=== PATIENT | female | born 1985 | race Caucasian/White ===

== ENCOUNTER 2020-01-14 09:32 | Inpatient (IN) | payer BC ==
[2020-01-19] MEDS ORDERED: CARBOPROST TROMETHAMINE 250 MCG/ML 1 ML AMP IM PRN (17:00)
[2020-01-19] MEDS ORDERED: OXYTOCIN 30 UNITS/500 ML NS 30 UNIT in SALINE 1 500ML.BAG IV SCH (17:00)
[2020-01-19] MEDS ORDERED: TERBUTALINE 1 MG/ML VIAL SQ PRN (17:00)
[2020-01-19] MEDS ORDERED: METHYLERGONOVINE 0.2 MG/ML 1 ML AMP IM PRN (17:00)
[2020-01-19] MEDS ORDERED: OXYTOCIN 10 UNIT/ML 1 ML VIAL IM PRN (17:00)
[2020-01-19] MEDS ORDERED: LIDOCAINE 0.5% (PF) 5 MG/ML (50 ML SDV) SQ PRN (17:00)
[2020-01-19] MEDS ORDERED: DINOPROSTONE 10 MG INSERT.ER VAGINAL ONE (17:02)
--- NOTE | 2020-01-19 17:05 | P.HPOB ---
History of Present Illness H&P Date: 01/19/20 Chief Complaint: IUP at 40 and 5/sevenths weeks, postdates This is a 34-year-old at 40-5/7 weeks that presents to labor and delivery for induction of labor secondary to postdates. Patient had an JOSE done in the office today with a level of 8 slightly low. Patient is noted good movement, she had a reactive NST in the office today. Patient is patient had an ultrasound last week revealing a estimated weight of 9 lbs. 1 oz., JOSE of 10. Patient has noted good movement since this visit. Patient denies contractions. Review of Systems Constitutional: Denies fatigue, Denies fever Ears, nose, mouth and throat: Denies headache Cardiovascular: Reports leg edema Gastrointestinal: Denies constipation, Denies diarrhea, Denies nausea, Denies vomiting Genitourinary: Reports Exam Osteopathic Statement: *. No significant issues noted on an osteopathic structural exam other than those noted in the History and Physical/Consult. Targeted physical exam is deferred in this date and family worker a well-nourished well-developed female in obvious distress, breathing is noted to be nonlabored, heart has regular rate and rhythm, abdomen is gravid and appropriate for gestational age, heart tones returned be category 1, on cervical exam she is 1/70/-2 station. Assessment and Plan (1) Post-dates Current Visit: Yes Status: Acute Code(s): O48.0 - POST-TERM SNOMED Code(s): 36515906 Plan: Patient is admitted to labor and delivery for Cervidil induction of labor secondary to postdates. Patient is counseled on Cervidil induction of labor and all questions are answered. Patient is counseled on options for analgesia including Stadol and epidural patient will consider both.
[2020-01-19 18:42] LABS: Basophils # (A) 0.1 k/uL (0-0.2); Basophils % (A) 1 %; Eosinophils # (A) 0.3 k/uL (0-0.7); Eosinophils % (A) 3 %; HCT 39.9 % (34.0-46.0); HGB 14.2 gm/dL (11.4-16.0); Lymphocytes # (A) 2.5 k/uL (1.0-4.8); Lymphocytes % (A) 24 %; MCH 33.7 pg (25.0-35.0); MCHC 35.6 g/dL (31.0-37.0); MCV 94.6 fL (80.0-100.0); Mean Platelet Volume 9.6; Monocytes # (A) 0.6 k/uL (0-1.0); Monocytes % (A) 6 %; Neutrophils # (A) 6.9 k/uL (1.3-7.7); Neutrophils % (A) 65 %; Platelet Count 210 k/uL (150-450); RBC 4.21 m/uL (3.80-5.40); RDW 12.6 % (11.5-15.5); WBC 10.6 k/uL (3.8-10.6)
[2020-01-19] MEDS ORDERED: BUTORPHANOL 1 MG/ML 1 ML VIAL IV PRN (22:05)
[2020-01-19] MEDS: LACTATED RINGERS 1,000 ML IV SCH (22:13)
[2020-01-20] MEDS: LACTATED RINGERS 1,000 ML IV SCH ×4 (00:21→11:28)
[2020-01-20] MEDS ORDERED: SODIUM CHLORIDE 0.9% 100 ML BAG ONE (00:34)
[2020-01-20] MEDS ORDERED: fentaNYL (PF) 50 MCG/ML 5 ML AMP ONE (00:34)
[2020-01-20] MEDS ORDERED: ROPIVACAINE 5MG/ML 20ML VIAL ONE (00:34)
[2020-01-20] MEDS ORDERED: CITRIC ACID-SODIUM CITRATE 15 ML CUP PO ONE (02:16)
[2020-01-20] MEDS ORDERED: ceFAZolin 1,000 MG VIAL ONE (02:35)
[2020-01-20] MEDS ORDERED: OXYTOCIN 10 UNIT/ML 1 ML VIAL ONE (02:35)
[2020-01-20] MEDS ORDERED: MORPHINE SULFATE (PF) 0.3 MG/0.3 ML SYR ONE (02:35)
[2020-01-20] MEDS ORDERED: ONDANSETRON 4 MG/2 ML VIAL ONE (02:35)
[2020-01-20] MEDS ORDERED: diphenhydrAMINE 50 MG/ML 1 ML VIAL IVP PRN ×2 (03:13)
[2020-01-20] MEDS ORDERED: IBUPROFEN 600 MG TAB PO PRN (03:13)
[2020-01-20] MEDS ORDERED: ACETAMINOPHEN TAB 325 MG TAB PO PRN (03:13)
[2020-01-20] MEDS ORDERED: HYDROcodone/APAP 5-325MG 1 EACH TAB PO PRN (03:13)
[2020-01-20] MEDS ORDERED: diphenhydrAMINE 25 MG CAP PO PRN (03:13)
[2020-01-20] MEDS ORDERED: ACETAMINOPHEN IV (For NPO) 1,000 MG in EMPTY BAG 1 BAG IVPB ONE (03:13)
[2020-01-20] MEDS ORDERED: diphenhydrAMINE 50 MG CAP PO PRN (03:13)
[2020-01-20] MEDS ORDERED: METOCLOPRAMIDE 5 MG/ML 2 ML VIAL IVP PRN (03:13)
[2020-01-20] MEDS ORDERED: ZOLPIDEM 5 MG TAB PO PRN (03:13)
[2020-01-20] MEDS ORDERED: NALOXONE 0.4 MG/ML 1 ML VIAL IV PRN (03:13)
[2020-01-20] MEDS ORDERED: ONDANSETRON 4 MG/2 ML VIAL IVP PRN (03:13)
[2020-01-20] MEDS ORDERED: IBUPROFEN IV 800 MG in SODIUM CHLORIDE 0.9% 250 ML IV ONE (03:14)
[2020-01-20] MEDS ORDERED: OXYTOCIN 20 UNITS/1000 ML NS 1,000 ML IV SCH (03:15)
--- NOTE | 2020-01-20 03:17 | P.OP ---
Date of Procedure: 01/20/20 Preoperative Diagnosis: IUP at 40 and 6/sevenths weeks, meconium-stained fluid, nonreassuring heart tones Postoperative Diagnosis: Same Procedure(s) Performed: Primary low transverse section Anesthesia: epidural Surgeon: Aminah Cadena Auto Mechanics Instructor #1: Brigitte Gilliland Estimated Blood Loss (ml): 600 IV fluids (ml): 1,000 Urine output (ml): 100 Pathology: other (Placenta) Condition: stable Disposition: observation Indications for Procedure: This 34-year-old at 40-6/7 weeks presents to labor and delivery for Cervidil induction of labor. Cervidil was placed patient progressed quickly jyothi t into active labor. Patient was uncomfortable and did request epidural placement. Patient was known to be 4-5 cm just prior to the epidural. Patient was noted to have some decelerations after the epidural that resolved. Patient was then noted to have consistent decelerations to the 90s for 2 minutes and minimal variability. Patient was counseled on intolerance to labor and need for primary . Patient stated understanding and was taken back to the operating suite. Operative Findings: Normal uterus tubes and ovaries were appreciated, viable female infant delivered at 247, weight of 7 lbs. 10 oz. and Apgars of 8 and 9 at one and 5 minutes respectively. Description of Procedure: The patient was prepped and draped in the usual fashion after epidural anesthesia was found be adequate. A Pfannenstiel incision was made and extended of the abdominal cavity without difficulty. The bladder peritoneum was elevated and incised and reflected distally. A 2 cm incision was made in the transverse plane of the lower uterine segment to enter the uterus at which time clear fluid was noted. The incision was extended in both directions manually. The head was encountered within the field and delivered up and through the incision where the nose and mouth were thoroughly suctioned. Remainder of the infant was delivered onto the surgical field where the cord was doubly clamped, cut, and the infant was passed for resuscitative measures with weight and Apgars as noted above. A segment of cord was then doubly clamped, cut, and set aside should cord gases become necessary. The placenta was delivered manually, intact, and was grossly normal with a grossly normal three-vessel cord. The uterus was exteriorized and the interior cavity of the uterus swept of any remaining placental and membranous fragments with a laparotomy sponge. The margins of the incision were grasped with Allis clamps and the incision closed in 2 layers. First layer was a running locking layer of 0 Vicryl from margin to margin followed by a second layer of imbricating 0 Vicryl from margin to margin. Any small points of bleeding were then made hemostatic with the Bovie. Once hemostasis was achieved, the posterior cul-de-sac was suctioned with a guard and the uterine and ovarian findings are as noted above. The uterus was replaced within the abdominal cavity and the gutters swept of any remaining blood fluid or clot. The incision was again reexamined and hemostasis was noted to be excellent. Any small point of bleeding were made hemostatic with the Bovie. Once hemostasis was achieved the parietal peritoneum was loosely reapproximated. The layer of muscles were examined and made hemostatic with the Bovie. A ttention was then turned to the fascia which was closed with 2 running stitches of 0 Vicryl proceeding from the lateral margins to the midpoint. The subcutaneous tissues were irrigated, made hemostatic with the Bovie, and reapproximated with a running stitch of 30 plain catgut. The skin was reapproximated with 4-0 Vicryl. Estimated blood loss for the case was approximately 600 mL. All sponge instrument and needle counts are correct. There were no complications. The patient tolerated the procedure well and proceeded to the recovery room in stable condition. Both mother and are resting comfortably in recovery.
[2020-01-20] MEDS: SENNOSIDES-DOCUSATE SODIUM 1 EACH TAB PO SCH ×2 (09:53→21:25)
--- NOTE | 2020-01-20 12:52 | P.PNOBGPC ---
Subjective - Subjective Principal diagnosis: POD 0 LTCS, mec stained fluid, NRFHTs. Interval history: Patient did well this morning, she is ambulating with some dizziness, she is tolerating clear liquids. She states her pain is well-controlled. We are awaiting a spontaneous void as Alcaraz was just discontinued. Lochia is noted to be moderate. Patient reports: Reports pain well controlled, Reports ambulating normally, Reports nauseated : doing well Objective - Vital Signs Latest vital signs: Vital Signs Temp Pulse Resp BP Pulse Ox 01/20/20 11:59 98.7 F 47 L 16 132/68 01/20/20 08:00 98.4 F 63 16 137/78 97 01/20/20 05:20 99.6 F 76 16 127/80 01/20/20 04:50 75 16 160/75 01/20/20 04:20 72 16 136/87 01/20/20 04:05 72 16 136/66 01/20/20 03:50 72 16 140/65 01/20/20 03:35 75 16 148/71 01/20/20 03:20 97.7 F 74 16 129/69 01/19/20 17:14 97.9 F 78 18 137/93 100 Intake and Output 01/19/20 01/20/20 01/20/20 22:59 06:59 14:59 Intake Total 50 Output Total 375 1300 Balance -375 -1250 Intake: Oral 50 Output: Urine 375 1300 Uretheral ([place]caraz) 1300 Other: # Voids 1 # Bowel Movements 1 Weight 68.492 kg - Exam Extremities: Present: normal, edema Abdomen: Present: normal appearance, soft Incision: Present: normal, dry, intact Uterus: Present: firm Assessment and Plan (1) Post-dates Current Visit: Yes Status: Acute Code(s): O48.0 - POST-TERM SNOMED Code(s): 97787333 (2) Thin meconium stained amniotic fluid Current Visit: Yes Status: Acute Code(s): P96.83 - MECONIUM STAINING SNOMED Code(s): 760179723 (3) Non-reassuring heart rate with late deceleration Current Visit: Yes Status: Acute Code(s): O36.8390 - MATERN CARE FOR ABNLT FETL HRT RATE OR RHYM, UNSP TRI, UNSP SNOMED Code(s): 388280540 (4) S/P section Current Visit: Yes Status: Acute Code(s): Z98.891 - HISTORY OF UTERINE SCAR FROM PREVIOUS SURGERY SNOMED Code(s): 307675479 Plan: This 34-year-old 1 now para 1 status post primary for nonreassuring heart tones, thin meconium-stained fluid is doing well. Alcaraz was discontinued we are awaiting spontaneous void. Encouraging increased ambulation and we will advance diet as tolerated.
[2020-01-20] MEDS: IBUPROFEN ORAL SUSP 100 MG/5 ML CUP PO PRN (21:59)
[2020-01-20] MEDS: SENNA LEAF EXTRACT SYRUP 528 MG/15 ML CUP PO SCH (22:03)
[2020-01-21] MEDS: IBUPROFEN ORAL SUSP 100 MG/5 ML CUP PO PRN ×3 (05:45→18:35)
--- NOTE | 2020-01-21 07:09 | P.PN ---
Progress Note - Text Date: 01/21/2020 Time: 06:53 The patient is status post section Vital signs stable VAS: 0-10 Patient has no complaints of pain. The patient incurred some minimal itching and nausea yesterday, the itching and nausea have now subsided. Pain meds to be managed by service.
[2020-01-21 08:42] LABS: Basophils % (A) 0 %; Eosinophils # (A) 0.2 k/uL (0-0.7); Eosinophils % (A) 2 %; HCT 35.4 % (34.0-46.0); HGB 12.2 gm/dL (11.4-16.0); Lymphocytes # (A) 1.7 k/uL (1.0-4.8); Lymphocytes % (A) 16 %; MCH 33.5 pg (25.0-35.0); MCHC 34.4 g/dL (31.0-37.0); MCV 97.4 fL (80.0-100.0); Mean Platelet Volume 9.2; Monocytes # (A) 0.6 k/uL (0-1.0); Monocytes % (A) 6 %; Neutrophils # (A) 7.8 k/uL (1.3-7.7); Neutrophils % (A) 74 %; Platelet Count 155 k/uL (150-450); RBC 3.64 m/uL (3.80-5.40); RDW 12.9 % (11.5-15.5); WBC 10.5 k/uL (3.8-10.6)
--- NOTE | 2020-01-21 08:43 | P.PNOBGPC ---
Subjective - Subjective Principal diagnosis: POD 1 LTCS NRFHTs Interval history: patient overall did well overnight. Patient is noting increased pain for which she is taking liquid [place], liquid Motrin. Patient is ambulating and voiding without difficulty. She is tolerating a regular diet without nausea or vomiting. She states she is painful but hasn't taken her pain medication. Her lochia is minimal. she is attempting to breast-feed. Patient reports: Reports appetite normal, Reports voiding normally, Reports ambulating normally, Reports nauseated [place]: doing well Objective - Vital Signs Latest vital signs: Vital Signs Temp Pulse Resp BP Pulse Ox 01/21/20 00:00 97.6 F 63 16 131/70 96 01/20/20 20:00 97.2 F L 63 16 137/86 98 01/20/20 16:00 98.1 F 46 L 16 122/70 01/20/20 11:59 98.7 F 47 L 16 132/68 Intake and Output 01/20/20 01/21/20 01/21/20 22:59 06:59 14:59 Output Total 2150 400 Balance -2150 -400 Output: Urine 2150 400 Uretheral (Alcaraz) 900 Other: Voiding Method Toilet - Exam Extremities: Present: normal, edema Abdomen: Present: normal appearance Incision: Present: normal Uterus: Present: normal, firm Assessment and Plan (1) Post-dates Current Visit: Yes Status: Acute Code(s): O48.0 - POST-TERM SNOMED Code(s): 20927900 (2) Thin meconium stained amniotic fluid Current Visit: Yes Status: Acute Code(s): P96.83 - MECONIUM STAINING SNOMED Code(s): 959517384 (3) Non-reassuring heart rate with late deceleration Current Visit: Yes Status: Acute Code(s): O36.8390 - MATERN CARE FOR ABNLT FETL HRT RATE OR RHYM, UNSP TRI, UNSP SNOMED Code(s): 100682910 (4) S/P section Current Visit: Yes Status: Acute Code(s): Z98.891 - HISTORY OF UTERINE SCAR FROM PREVIOUS SURGERY SNOMED Code(s): 639991064 Plan: we'll plan to continue routine postoperative care and encouraged her to take her pain medication. Increased ambulation and anticipate discharge home tomorrow.
[2020-01-21] MEDS: SENNA LEAF EXTRACT SYRUP 528 MG/15 ML CUP PO SCH ×2 (08:48→20:02)
[2020-01-21] MEDS: HYDROcodone/APAP 15 ML SOLUTION PO PRN ×3 (08:49→22:48)
[2020-01-21] MEDS: SIMETHICONE 80 MG CHEWABLE PO PRN ×2 (15:36→20:07)
[2020-01-21 23:39] VITALS: PULSE 69; RESP 16
[2020-01-22] MEDS: IBUPROFEN ORAL SUSP 100 MG/5 ML CUP PO PRN (05:33)
[2020-01-22 07:59] VITALS: BP 138/71; TEMP 98.7
[2020-01-22] MEDS: SIMETHICONE 80 MG CHEWABLE PO PRN (08:05)
[2020-01-22] MEDS: HYDROcodone/APAP 15 ML SOLUTION PO PRN (08:06)
--- NOTE | 2020-01-22 08:44 | P.DS ---
Providers Date of admission: 01/19/20 16:36 Expected date of discharge: 01/22/20 Attending physician: Aminah Cadena Primary care physician: Stated None - Discharge Diagnosis(es) (1) Post-dates Current Visit: Yes Status: Acute (2) Thin meconium stained amniotic fluid Current Visit: Yes Status: Acute (3) Non-reassuring heart rate with late deceleration Current Visit: Yes Status: Acute (4) S/P section Current Visit: Yes Status: Acute Hospital Course: This is a 34-year-old 1 para 0 that presented to labor and delivery for Cervidil induction of labor secondary to postdates at 40-6/7 weeks. Patient was noted to be 1/70/-2 station. Patient quickly progressed into labor after a few hours was noted to be 2 cm. Patient was significantly uncomfortable and did receive Stadol 1. Patient was noted to be 4-5 cm requesting epidural. Epidural was placed without difficulty by the anesthesia department. After epidural was placed some decelerations were noted. Approximately 2 hours later decelerations continued down to the 90s for 2 minutes with return to baseline and minimal variability. Patient was counseled on primary secondary to nonreassuring heart tones. Patient agreed and was taken back for primary secondary to nonreassuring heart tones. For further details on the please see the operative report. Patient's postoperative course has been essentially uneventful. Patient is ambulating and voiding without difficulty on this postoperative day #3. She states her lochia is minimal. Her pain is controlled with liquid [place] and Motrin. She is proceeding without difficulty and does wish discharge home on this postoperative day #2. Patient Condition at Discharge: Good Plan - Discharge Summary New Discharge Prescriptions: No Action Pnv,Calcium 72/Iron/Folic Acid [ Plus Tablet] 1 tab PO DAILY MDD 1 Discharge Medication List Pnv,Calcium 72/Iron/Folic Acid [ Plus Tablet] 1 tab PO DAILY MDD 1 01/19/20 [History] Follow up Appointment(s)/Referral(s): Aminah Cadena DO [Doctor of Osteopathic Medicine] - 2 Weeks Patient Instructions/Handouts: (DC), (GEN) Activity/Diet/Wound Care/Special Instructions: No tub baths or intercourse until 6 weeks postoperatively. Patient is given scripts for liquid [place]/Motrin. Patient is to be seen in 2 weeks for routine postoperative check. Discharge Disposition: HOME SELF-CARE
== END 2020-01-22 12:25 | disposition home or self-care (01) | DRG 788 ==
LOC: 4FBP 01-19 16:36
PROVIDERS: ADMIT Obstetrics & Gynecology Obstetrics; ATTEND Obstetrics & Gynecology Obstetrics
PROC: 3E0P7VZ Introduction of Hormone into Female Reproductive, Via Natural or Artificial Opening (ICD-10-PCS; 2020-01-19)
PROC: 00HU33Z Insertion of Infusion Device into Spinal Canal, Percutaneous Approach (ICD-10-PCS; 2020-01-19)
PROC: 3E0R3NZ Introduction of Analgesics, Hypnotics, Sedatives into Spinal Canal, Percutaneous Approach (ICD-10-PCS; 2020-01-19)
PROC: 10D00Z1 Extraction of Products of Conception, Low, Open Approach (ICD-10-PCS; principal; 2020-01-20 02:43)
DX: O48.0 Post-term pregnancy (principal); O76 Abnormality in fetal heart rate and rhythm complicating labor and delivery; O77.0 Labor and delivery complicated by meconium in amniotic fluid; Z37.0 Single live birth; Z3A.40 40 weeks gestation of pregnancy
CPT/HCPCS: 85025; 86850; 86900; 86901; 88307

== ENCOUNTER 2022-07-06 09:59 | Inpatient (IN) | payer BC ==
[2022-07-04 18:14] VITALS: BMI 26.5
[2022-07-06] MEDS ORDERED: OXYTOCIN 10 UNIT/ML 1 ML VIAL IM PRN (10:23)
[2022-07-06] MEDS ORDERED: CARBOPROST TROMETHAMINE 250 MCG/ML 1 ML AMP IM PRN (10:23)
[2022-07-06] MEDS ORDERED: METHYLERGONOVINE 0.2 MG/ML 1 ML AMP IM PRN (10:23)
[2022-07-06] MEDS ORDERED: miSOPROStoL 200 MCG TAB PO PRN (10:23)
[2022-07-06] MEDS ORDERED: CITRIC ACID-SODIUM CITRATE 15 ML CUP PO ONE (10:23)
[2022-07-06] MEDS ORDERED: TRANEXAMIC ACID IN NACL,ISO-OS 1,000 MG in EMPTY BAG 1 BAG IV PRN (10:23)
[2022-07-06] MEDS ORDERED: LACTATED RINGERS 1,000 ML IV SCH (11:00)
[2022-07-06 11:25] LABS: Basophils # (A) 0.1 k/uL (0-0.2); Basophils % (A) 1 %; Eosinophils # (A) 0.3 k/uL (0-0.7); Eosinophils % (A) 3 %; HGB 13.9 gm/dL (11.4-16.0); Lymphocytes # (A) 2.3 k/uL (1.0-4.8); Lymphocytes % (A) 23 %; MCH 31.6 pg (25.0-35.0); MCHC 34.7 g/dL (31.0-37.0); MCV 91.1 fL (80.0-100.0); Mean Platelet Volume 10.6; Monocytes # (A) 0.5 k/uL (0-1.0); Monocytes % (A) 5 %; Neutrophils # (A) 6.6 k/uL (1.3-7.7); Neutrophils % (A) 66 %; Platelet Count 202 k/uL (150-450); RBC 4.39 m/uL (3.80-5.40); RDW 13.7 % (11.5-15.5)
[2022-07-06] MEDS ORDERED: ONDANSETRON 4 MG/2 ML VIAL ONE (12:08)
[2022-07-06] MEDS ORDERED: MORPHINE SULFATE (PF) 0.3 MG/0.3 ML SYR ONE (12:08)
[2022-07-06] MEDS ORDERED: OXYTOCIN 30 UNITS/500 ML NS BAG IV ONE (12:08)
--- NOTE | 2022-07-06 13:14 | P.HPOB ---
History of Present Illness H&P Date: 07/06/22 Chief Complaint: IUP @ 39 weeks, h/o section x 1 This is a 37-year-old 2 para 1 at 39-0/7 weeks that presents to labor and delivery for scheduled repeat section. Patient has been receiving routine care which has been complicated by a diagnosis of polyhydramnios. testing and growth ultrasounds have been normal. Patient does note good movement denies contractions loss of fluid or vaginal bleeding. Patient had a prior section secondary to nonreassuring heart tones and arrest of dilation. Patient desires repeat section. Patient's cervix has remained unfavorable through the . Patient is been quite uncomfortable throughout the third trimester. On bloodwork this patient is a blood type of O+, rubella status immune, hepatitis B surface antigen negative, HIV negative, RPR is nonreactive, group beta strep cultures are negative. Review of Systems Constitutional: Denies chills, Denies fatigue, Denies fever Ears, nose, mouth and throat: Denies headache Cardiovascular: Denies leg edema Respiratory: Denies dyspnea Gastrointestinal: Denies constipation, Denies diarrhea, Denies nausea, Denies vomiting Genitourinary: Reports Past Medical History Past Medical History: Skin Disorder Additional Past Medical History / Comment(s): psoriasis, History of Any Multi-Drug Resistant Organisms: None Reported Past Surgical History: Section, Cholecystectomy Additional Past Surgical History / Comment(s): gallbladder 2011 Past Anesthesia/Blood Transfusion Reactions: No Reported Reaction Past Psychological History: Anxiety Smoking Status: Never smoker Past Alcohol Use History: None Reported Past Drug Use History: None Reported - Past Family History Father Family Medical History: Diabetes Mellitus, Renal Disease Mother Family Medical History: Thyroid Disorder Additional Family Medical History / Comment(s): osteoporosis, goiter Medications and Allergies Home Medications Medication Instructions Recorded Confirmed Type Vit No.180/Iron/Folic 1 tab PO DAILY MDD 1 01/19/20 07/06/22 History [ Plus Tablet] Allergies Allergy/AdvReac Type Severity Reaction Status Date / Time No Known Allergies Allergy Verified 07/06/22 10:22 Exam Osteopathic Statement: *. No significant issues noted on an osteopathic structural exam other than those noted in the History and Physical/Consult. Vital Signs Temp Pulse Resp BP Pulse Ox 07/06/22 10:39 98.0 F 69 17 130/87 98 Intake and Output 07/05/22 07/06/22 07/06/22 22:59 06:59 14:59 Other: Weight 68.039 kg Targeted physical exam is performed and state and program facilitator a well-nourished well developed female in no acute distress, breathing is noted to nonlabored, heart has a regular rate and rhythm, abdomen is gravid and appropriate for gestational age, heart tones noted to be category 1 and she is not denis. Cervical exam is deferred. Results Result Diagrams: 07/06/22 10:24 Assessment and Plan (1) Term Current Visit: Yes Status: Acute Code(s): Z34.90 - ENCNTR FOR SUPRVSN OF NORMAL , UNSP, UNSP TRIMESTER SNOMED Code(s): 02899786 (2) History of section Current Visit: Yes Status: Acute Code(s): Z98.891 - HISTORY OF UTERINE SCAR FROM PREVIOUS SURGERY SNOMED Code(s): 160780042 Plan: 37-year-old at 39 weeks of presents for repeat section. Patient is offered trial of labor after which she has declined. Patient is counseled on risks of surgery including infection bleeding damage to bladder, bowel, ureteric, injury. Patient states understanding and wishes to proceed. Patient states she is done with childbearing and her will have a vasectomy she declines tubal ligation.
[2022-07-06] MEDS ORDERED: ONDANSETRON 4 MG/2 ML VIAL IVP PRN (13:18)
[2022-07-06] MEDS ORDERED: diphenhydrAMINE 50 MG CAP PO PRN (13:18)
[2022-07-06] MEDS ORDERED: METOCLOPRAMIDE 5 MG/ML 2 ML VIAL IVP PRN (13:18)
[2022-07-06] MEDS ORDERED: SIMETHICONE 80 MG CHEWABLE PO PRN (13:18)
[2022-07-06] MEDS ORDERED: diphenhydrAMINE 25 MG CAP PO PRN (13:18)
[2022-07-06] MEDS ORDERED: NALOXONE 0.4 MG/ML 1 ML VIAL IV PRN (13:18)
[2022-07-06] MEDS ORDERED: diphenhydrAMINE 50 MG/ML 1 ML VIAL IVP PRN ×2 (13:18)
[2022-07-06] MEDS ORDERED: ZOLPIDEM 5 MG TAB PO PRN (13:18)
--- NOTE | 2022-07-06 13:18 | P.OP ---
Date of Procedure: 07/06/22 Preoperative Diagnosis: 39 weeks of , history of 1 desires repeat, advanced maternal age, polyhydramnios Postoperative Diagnosis: Same Procedure(s) Performed: Repeat section Anesthesia: spinal Surgeon: Aminah Cadena Deicer Element Winder Machine #1: Deann Carter Estimated Blood Loss (ml): 408 IV fluids (ml): 1,000 Urine output (ml): 50 Pathology: none sent Condition: stable Disposition: observation Indications for Procedure: 37-year-old 2 para 1 at 39 weeks of presents for repeat section. Patient had a prior secondary to nonreassuring heart tones and arrest of dilation. Patient elects repeat and declines trial of labor after . Operative Findings: Normal uterus tubes and ovaries were appreciated. Viable female delivered at 1231, weight of 7 lbs. 3 oz., Apgars of 8 and 9 at one and 5 minutes respectively. Some filmy bladder adhesions were appreciated and taken down sharply. Description of Procedure: Patient was taken back to the operating suite where spinal anesthesia was found be adequate by the anesthesia department. She was prepped and draped in the normal sterile fashion in the dorsal supine position. A Pfannenstiel skin incision was made the scalpel and carried through to the underlying layer of fascia. The fascia was incised in the midline and extended laterally. The superior aspect of the fascial incision was then grasped aga clamps, elevated and underlying rectus muscles dissected off sharply. Attention then turned the inferior aspect of the fascial incision which was grasped aga clamps, elevated and underlying rectus muscles dissected off sharply. The rectus muscles were in the midline and the incision was extended superiorly and inferiorly with good visualization the bladder. The bladder blade was then inserted into the pelvis and the bladder flap was created using sharp and blunt dissection. Some filmy adhesions were noted of the bladder these were taken down sharply. The bladder blade was then reinserted and the bladder was far away from the operating field. Hysterotomy incision was made with a scalpel clear fluid was noted on amniotomy. The head was encountered in a vertex presentation and delivered in the usual fashion. A spontaneous cry was noted at . The middle cord was doubly clamped and cut. The placenta was delivered manually and the uterus exteriorized and cleared of all clots and debris. The uterine incision was closed 0 Vicryl in a running locked fashion. Bleeding was noted on the right-hand side of the uterine incision from adhesio lysis of the bladder therefore a [id number] suture was used to obtain hemostasis. Any further points of bleeding were made hemostatic with the Bovie. The uterus then returned to the abdomen. The gutters were cleared of all clots and debris. Hysterotomy incision was inspected hemostasis was appreciated. The peritoneum was loosely reapproximated. The rectus muscles were inspected any points of bleeding were made hemostatic with the Bovie. The fascia was then closed with 0 Vicryl in a running fashion. The subcutaneous tissue was irrigated found to be hemostatic and closed with 3-0 Vicryl. The skin was then closed with 4-0 Vicryl in a septic fashion. Steri-Strips and sterile dressings were applied. All coun ts were correct 2 at the end of the procedure. Patient and infant tolerated delivery well and are resting comfortably.
[2022-07-06] MEDS ORDERED: OXYTOCIN 30 UNITS/500 ML NS 30 UNIT in SALINE 1 500ML.BAG IV SCH (13:30)
[2022-07-06] MEDS: ACETAMINOPHEN IV (For NPO) 1,000 MG in EMPTY BAG 1 BAG IVPB SCH ×2 (13:31→22:00)
[2022-07-06] MEDS: LACTATED RINGERS 1,000 ML IV SCH (18:46)
[2022-07-06] MEDS ORDERED: SENNOSIDES-DOCUSATE SODIUM 1 EACH TAB PO SCH (20:00)
[2022-07-06] MEDS: IBUPROFEN 600 MG TAB PO SCH (20:46)
[2022-07-06] MEDS: IBUPROFEN IV 800 MG in SODIUM CHLORIDE 0.9% 250 ML IV SCH (21:36)
[2022-07-07] MEDS: IBUPROFEN 600 MG TAB PO SCH (03:55)
[2022-07-07] MEDS: LACTATED RINGERS 1,000 ML IV SCH ×2 (04:12→12:23)
[2022-07-07] MEDS ORDERED: ACETAMINOPHEN TAB 500 MG TAB PO SCH (05:00)
[2022-07-07] MEDS: IBUPROFEN IV 800 MG in SODIUM CHLORIDE 0.9% 250 ML IV SCH ×3 (06:44→16:21)
[2022-07-07 07:10] LABS: Basophils % (A) 0 %; Eosinophils # (A) 0.2 k/uL (0-0.7); Eosinophils % (A) 2 %; HCT 35.7 % (34.0-46.0); HGB 12.4 gm/dL (11.4-16.0); Lymphocytes % (A) 10 %; MCH 32.7 pg (25.0-35.0); MCHC 34.6 g/dL (31.0-37.0); MCV 94.3 fL (80.0-100.0); Monocytes # (A) 0.4 k/uL (0-1.0); Monocytes % (A) 4 %; Neutrophils # (A) 8.1 k/uL (1.3-7.7); Neutrophils % (A) 83 %; Platelet Count 152 k/uL (150-450); RBC 3.78 m/uL (3.80-5.40); RDW 13.3 % (11.5-15.5); WBC 9.8 k/uL (3.8-10.6)
[2022-07-07] MEDS: SENNA LEAF EXTRACT SYRUP 528 MG/15 ML CUP PO SCH ×2 (08:14→19:51)
[2022-07-07] MEDS: DOCUSATE ORAL SOLN 100 MG/10 ML CUP PO SCH ×2 (08:15→19:51)
[2022-07-07] MEDS: IBUPROFEN ORAL SUSP 2,400 MG/120 ML BOTTLE PO SCH ×3 (08:16→19:22)
--- NOTE | 2022-07-07 09:13 | P.PNOBGPC ---
Subjective - Subjective Principal diagnosis: Postop day 1, repeat section Interval history: Patient is doing well postoperatively. She is ambulating and voiding without difficulty. She is tolerating clear liquids without nausea or vomiting. Her lochia is minimal. Patient reports: Reports appetite normal, Reports voiding normally, Reports pain well controlled, Reports ambulating normally : doing well Objective - Vital Signs Latest vital signs: Vital Signs Temp Pulse Resp BP Pulse Ox 07/07/22 08:00 98.0 F 65 16 109/72 100 07/07/22 04:00 97.6 F 56 L 16 125/74 07/07/22 00:00 98.2 F 61 16 121/74 99 07/06/22 20:00 98.8 F 64 16 124/77 98 07/06/22 15:06 95.6 F L 46 L 17 100 07/06/22 14:36 58 L 17 130/82 07/06/22 14:06 52 L 16 115/70 100 07/06/22 13:51 59 L 17 126/69 100 07/06/22 13:36 65 17 135/80 07/06/22 13:21 56 L 17 138/85 98 07/06/22 13:06 97.1 F L 54 L 17 139/70 97 07/06/22 10:39 98.0 F 69 17 130/87 98 Intake and Output 07/06/22 07/07/22 07/07/22 22:59 06:59 14:59 Intake Total 300 Output Total 550 400 Balance -250 -400 Intake: IV 300 Output: Urine 450 400 Uretheral ([place]caraz) 150 Estimated Blood Loss 100 Other: # Voids 2 - Exam Extremities: Present: normal. Absent: edema Abdomen: Present: normal appearance, soft Incision: Present: normal, dry Uterus: Present: normal, firm - Labs Labs: Abnormal Lab Results - Last 24 Hours (Table) 07/07/22 Range/Units 06:29 RBC 3.78 L (3.80-5.40) m/uL Neutrophils # 8.1 H (1.3-7.7) k/uL Assessment and Plan (1) Term Current Visit: Yes Status: Acute Code(s): Z34.90 - ENCNTR FOR SUPRVSN OF NORMAL , UNSP, UNSP TRIMESTER SNOMED Code(s): 49742664 (2) History of section Current Visit: Yes Status: Acute Code(s): Z98.891 - HISTORY OF UTERINE SCAR FROM PREVIOUS SURGERY SNOMED Code(s): 768347617 (3) S/P section Current Visit: No Status: Acute Code(s): Z98.891 - HISTORY OF UTERINE SCAR FROM PREVIOUS SURGERY SNOMED Code(s): 832077328 Plan: 37-year-old G2 now P2 status post repeat section. Patient is doing well postoperatively. We'll continue routine postoperative care and anticipate discharge home tomorrow.
[2022-07-07] MEDS: ACETAMINOPHEN ORAL SUSP (PEDS) 3,840 MG/120 ML BOTTLE PO SCH ×4 (09:27→23:20)
--- NOTE | 2022-07-07 11:09 | P.PN ---
Progress Note - Text 07/07/22 617am 37-year-old female status post with spinal Duramorph. Patient seen and evaluated for postop pain control she has a VAS of 1-2 with only complains of pruritus which should subside soon
[2022-07-08] MEDS: IBUPROFEN ORAL SUSP 2,400 MG/120 ML BOTTLE PO SCH (01:27)
[2022-07-08 04:53] VITALS: RESP 16
[2022-07-08] MEDS: ACETAMINOPHEN ORAL SUSP (PEDS) 3,840 MG/120 ML BOTTLE PO SCH (06:46)
--- NOTE | 2022-07-08 08:19 | P.DS ---
Providers Date of admission: 07/06/22 09:59 Expected date of discharge: 07/08/22 Attending physician: Aminah Cadena Primary care physician: Stated None - Discharge Diagnosis(es) (1) Term Current Visit: Yes Status: Acute (2) History of section Current Visit: Yes Status: Acute (3) S/P section Current Visit: No Status: Acute Hospital Course: 37-year-old G2 now P2 presented to labor and delivery for scheduled repeat section on Sunday. Patient a prior history of secondary to nonreassuring heart tones and arrest of first stage of labor. Patient has been receiving routine care with myself which is been essentially uncomplicated. Patient underwent repeat section without complication. For full details on the please see the operative report. Patient's course has been uneventful. This postoperative day #2 she is indwelling and voiding without difficulty. She states her lochia is minimal. She states her pain is well-controlled. She is tolerating a regular diet without nausea or vomiting. Patient Condition at Discharge: Good Plan - Discharge Summary Discharge Rx Participant: Yes New Discharge Prescriptions: No Action Vit No.180/Iron/Folic [ Plus Tablet] 1 tab PO DAILY MDD 1 Discharge Medication List Vit No.180/Iron/Folic [ Plus Tablet] 1 tab PO DAILY MDD 1 01/19/20 [History] Follow up Appointment(s)/Referral(s): Aminah Cadena DO [Doctor of Osteopathic Medicine] - 2 Weeks Patient Instructions/Handouts: (DC), (GEN) Activity/Diet/Wound Care/Special Instructions: No tub baths or intercourse until 6 weeks . Patient is to call the office with any concerns prior to her 2 week postop appointment. Discharge Disposition: HOME SELF-CARE
[2022-07-08 08:20] VITALS: BP 116/71; PULSE 72; TEMP 98.6
== END 2022-07-08 11:00 | disposition home or self-care (01) | DRG 788 ==
LOC: 4FBP 09:59
PROVIDERS: ADMIT Obstetrics & Gynecology Obstetrics; ATTEND Obstetrics & Gynecology Obstetrics
PROC: 10D00Z1 Extraction of Products of Conception, Low, Open Approach (ICD-10-PCS; principal; 2022-07-06 12:00)
DX: O40.3XX0 Polyhydramnios, third trimester, not applicable or unspecified (principal); O34.211 Maternal care for low transverse scar from previous cesarean delivery; Z37.0 Single live birth; Z3A.39 39 weeks gestation of pregnancy
CPT/HCPCS: 85025; 86850; 86900; 86901